=== PATIENT | male | born 1985 | race Caucasian/White ===

== ENCOUNTER 2017-06-13 20:11 | Emergency (ER) | payer SELFPAY ==
[2017-06-13 20:35] VITALS: BP 160/96
[2017-06-13] MEDS ORDERED: OXYCODONE-ACETAMINOPHEN 5-325 MG TABLET PO ONE (20:51)
--- NOTE | 2017-06-13 20:53 | ER Document Report ---
HPI - HPI Patient complains to provider of: Right lower leg pain Onset: Other - 3 weeks Onset/Duration: Persistent Quality of pain: Sharp Pain Level: 4 Context: Patient presents complaining of right leg pain for the past 3 weeks. Patient denies any injury, fever or urinary retention or incontinence. Patient states he did give himself an injection to the buttock around this time, and he has had pain ever since then. Patient states pain radiates up right lower back area as well. Associated Symptoms: Other - Right back, right lower leg. denies: Fever Exacerbated by: Movement Relieved by: Denies Similar symptoms previously: No Recently seen / treated by doctor: No - ROS ROS below otherwise negative: Yes Systems Reviewed and Negative: Yes All other systems reviewed and negative - CONSTITUTIONAL Constitutional: DENIES: Fever, Chills - NEURO Neurology: DENIES: Headache, Weakness - GASTROINTESTINAL Gastrointestinal: DENIES: Abdominal Pain, Nausea - URINARY Urinary: DENIES: Dysuria - MUSCULOSKELETAL Musculoskeletal: REPORTS: Extremity pain, Back Pain - DERM Skin Color: Normal Skin Problems: None Past Medical History - General Information source: Patient - Social History Smoking Status: Current Every Day Smoker Smoking Education Provided: Yes Frequency of alcohol use: None Drug Abuse: None Lives with: Spouse/Significant other Family History: Reviewed & Not Pertinent - Medical History Medical History: Other - Low testosterone Pulmonary Medical History: Reports: Hx Sleep Apnea Psychiatric Medical History: Reports: Hx Anxiety Surgical Hx: Negative Vertical Provider Document - CONSTITUTIONAL Agree With Documented VS: Yes Exam Limitations: No Limitations General Appearance: WD/WN, No Apparent Distress - INFECTION CONTROL TRAVEL OUTSIDE OF THE [place] IN LAST 30 DAYS: No - HEENT HEENT: Atraumatic, Normocephalic - NECK Neck: Normal Inspection - RESPIRATORY Respiratory: Breath Sounds Normal, No Respiratory Distress - CARDIOVASCULAR Cardiovascular: Regular Rate, Regular Rhythm Pulses: Normal: Dorsalis pedis - BACK Back: Abnormal Inspection - Right SI joint tenderness. negative: CVA Tenderness -Right, CVA Tenderness-Left Notes: No lumbar midline tenderness, step-off or deformity - MUSCULOSKELETAL/EXTREMETIES Musculoskeletal/Extremeties: MAEW, FROM - NEURO Level of Consciousness: Awake, Alert, Appropriate Motor/Sensory: No Motor Deficit, No Sensory Deficit Notes: No saddle anesthesia, no footdrop, normal gait - DERM Integumentary: Warm, Dry, No Rash Course - Re-evaluation Re-evalutation: 04/26/18 20:51 The patient presents with low back pain without signs of spinal cord compression , cauda equina syndrome, infection, aneurysm, or other serious etiology. The patient is neurologically intact. Given the extremely risk of these diagnoses further testing and evaluation for these possibilities does not appear to be indicated at this time. Patient has been instructed to return if the symptoms worsen or change in any way. Controlled substance database reviewed - Vital Signs Vital signs: Temp Pulse Resp BP Pulse Ox 98.6 F 89 19 160/96 H 98 06/13/17 20:35 06/13/17 20:35 06/13/17 20:35 06/13/17 20:35 06/13/17 20:35 Discharge - Discharge Clinical Impression: Sciatica Qualifiers: Laterality: right Qualified Code(s): M54.31 - Sciatica, right side Condition: Stable Disposition: HOME, SELF-CARE Instructions: Oral Narcotic Medication ([facility]), Sciatica ([facility]) Additional Instructions: Return immediately for any new or worsening symptoms Followup with your primary care provider, call tomorrow to make a followup appointment Prescriptions: Oxycodone HCl/Acetaminophen [Percocet 5-325 mg Tablet] 1 - 2 tab PO ASDIR PRN # 15 tablet PRN Reason: Prednisone [Deltasone 20 mg Tablet] 3 tab PO DAILY 5 Days tablet Forms: Smoking Cessation Education Referrals: [facility] [Provider Group] - Follow up as needed [facility] [Provider Group] - Follow up as needed
== END 2017-06-13 21:12 | disposition home or self-care (01) ==
LOC: ER 20:11
DX: M54.31 Sciatica, right side (principal); M79.604 Pain in right leg; M54.9 Dorsalgia, unspecified; F17.200 Nicotine dependence, unspecified, uncomplicated
CPT/HCPCS: 99283

== ENCOUNTER 2017-12-24 10:28 | Emergency (ER) | payer BC ==
[2017-12-24] MEDS ORDERED: PROCHLORPERAZINE EDISYLATE INJ 10 MG/2 ML VIAL IV ONE (12:01)
[2017-12-24] MEDS ORDERED: NORMAL SALINE 1000 ML 1,000 ML IV ONE (12:01)
[2017-12-24] MEDS ORDERED: DIPHENHYDRAMINE HCL 50 MG/ML VIAL IV ONE (12:01)
[2017-12-24] MEDS ORDERED: MECLIZINE HCL 25 MG TABLET PO ONE (12:03)
--- NOTE | 2017-12-24 12:03 | ER Document Report ---
ED Medical Screen (RME) - General Chief Complaint: Headache Stated Complaint: NEAR SYNCOPE Time Seen by Provider: 12/24/17 11:53 Mode of Arrival: Wheelchair Information source: Patient Notes: 32-year-old male presents emergency department with complaints of a headache, nausea, vomiting. Patient states that 11 AM this morning he began having a pounding sensation but behind his eyes bilaterally. He states that the pain radiated to the top of the head. He states that when he moves his head and light worsens the headache. He states that being in a dark room and keeping his head still helps with the headache. He did not take any medication prior to arrival. Patient states that this headache is more intense than his previous headaches. He states that currently he is feeling like he is on a boat. He states that the room is moving. Patient states that earlier he felt lightheaded like he was going to pass out. He denies any chest pain or shortness of breath. I have greeted and performed a rapid initial assessment of this patient. A comprehensive ED assessment and evaluation of the patient, analysis of test results and completion of the medical decision making process will be conducted by additional ED providers. PHYSICAL EXAMINATION: GENERAL: Well-appearing, well-nourished and in no acute distress. HEAD: Atraumatic, normocephalic. EYES: Pupils equal round extraocular movements intact, conjunctiva are normal. ENT: Nares patent NECK: Normal range of motion LUNGS: No respiratory distress Musculoskeletal: Normal range of motion NEUROLOGICAL: Normal speech. PSYCH: Normal mood, normal affect. SKIN: Warm, Dry, normal turgor, no rashes or lesions noted. TRAVEL OUTSIDE OF THE [place] IN LAST 30 DAYS: No - Related Data Allergies/Adverse Reactions: bupropion [From Wellbutrin] Allergy (Verified 12/24/17 10:33) Penicillins Allergy (Verified 12/24/17 10:33) Past Medical History - Social History Chew tobacco use (# tins/day): No Frequency of alcohol use: Occasional Drug Abuse: None Pulmonary Medical History: Reports: Hx Sleep Apnea Neurological Medical History: Reports: Hx Migraine Renal/ Medical History: Denies: Hx Peritoneal Dialysis Psychiatric Medical History: Reports: Hx Anxiety, Hx Attention Deficit Hyperactivity Disorder Past Surgical History: Reports: Hx Tonsillectomy Physical Exam - Vital signs Vitals: Temp Pulse Resp BP Pulse Ox 98.5 F 78 16 154/87 H 98 12/24/17 10:57 12/24/17 10:57 12/24/17 10:57 12/24/17 10:57 12/24/17 10:57 Course - Vital Signs Vital signs: Temp Pulse Resp BP Pulse Ox 98.5 F 78 16 154/87 H 98 12/24/17 10:57 12/24/17 10:57 12/24/17 10:57 12/24/17 10:57 12/24/17 10:57
--- NOTE | 2017-12-24 13:21 | EKG REPORT ---
SEVERITY:- ABNORMAL ECG - SINUS RHYTHM NONSPECIFIC INTRAVENTRICULAR CONDUCTION DELAY EARLY PRECORDIAL TRANSITION. : Confirmed by: Gerson Ramos MD 24-Dec-2017 13:20:26
--- NOTE | 2017-12-24 15:08 | ER Document Report ---
ED General - General Chief Complaint: Headache Stated Complaint: NEAR SYNCOPE Time Seen by Provider: 12/24/17 11:53 Mode of Arrival: Wheelchair TRAVEL OUTSIDE OF THE [place] IN LAST 30 DAYS: No - HPI Patient complains to provider of: Headache dizziness Notes: patient coming in for the above-stated symptoms. Patient was seen in the triage area provider note is provided below 32-year-old male presents emergency department with complaints of a headache, nausea, vomiting. Patient states that 11 AM this morning he began having a pounding sensation but behind his eyes bilaterally. He states that the pain radiated to the top of the head. He states that when he moves his head and light worsens the headache. He states that being in a dark room and keeping his head still helps with the headache. He did not take any medication prior to arrival. Patient states that this headache is more intense than his previous headaches. He states that currently he is feeling like he is on a boat. He states that the room is moving. Patient states that earlier he felt lightheaded like he was going to pass out. He denies any chest pain or shortness of breath. Patient agrees with above-stated symptoms and statements. Patient denies any fever chills diarrhea. Patient resting company upon my evaluation stating that most of his pain at this time is resolved and otherwise he is feeling asymptomatic. Patient denies following up with neurology denies any change in characteristic of that of his headache otherwise stating that this is a little bit more painful. Denies any trauma - Related Data Allergies/Adverse Reactions: bupropion [From Wellbutrin] Allergy (Verified 12/24/17 10:33) Penicillins Allergy (Verified 12/24/17 10:33) Past Medical History - General Information source: Patient - Social History Smoking Status: Current Every Day Smoker Chew tobacco use (# tins/day): No Frequency of alcohol use: Occasional Drug Abuse: None Family History: Reviewed & Not Pertinent Patient has suicidal ideation: No Patient has homicidal ideation: No Pulmonary Medical History: Reports: Hx Sleep Apnea Neurological Medical History: Reports: Hx Migraine Renal/ Medical History: Denies: Hx Peritoneal Dialysis Psychiatric Medical History: Reports: Hx Anxiety, Hx Attention Deficit Hyperactivity Disorder Past Surgical History: Reports: Hx Tonsillectomy Review of Systems - Review of Systems Constitutional: No symptoms reported EENT: No symptoms reported Cardiovascular: No symptoms reported Respiratory: No symptoms reported Gastrointestinal: No symptoms reported Genitourinary: No symptoms reported Male Genitourinary: No symptoms reported Musculoskeletal: No symptoms reported Skin: No symptoms reported Hematologic/Lymphatic: No symptoms reported Neurological/Psychological: Headaches, Other - Dizziness -: Yes All other systems reviewed and negative Physical Exam - Vital signs Vitals: Temp Pulse Resp BP Pulse Ox 98.5 F 78 16 154/87 H 98 12/24/17 10:57 12/24/17 10:57 12/24/17 10:57 12/24/17 10:57 12/24/17 10:57 Interpretation: Normal - General General appearance: Appears well, Alert - HEENT Head: Normocephalic, Atraumatic Eyes: Normal Pupils: PERRL - Respiratory Respiratory status: No respiratory distress Chest status: Nontender Breath sounds: Normal Chest palpation: Normal - Cardiovascular Rhythm: Regular Heart sounds: Normal auscultation Murmur: No - Abdominal Inspection: Normal Distension: No distension Bowel sounds: Normal Tenderness: Nontender Organomegaly: No organomegaly - Back Back: Normal, Nontender - Extremities General upper extremity: Normal inspection, Nontender, Normal color, Normal ROM , Normal temperature General lower extremity: Normal inspection, Nontender, Normal color, Normal ROM , Normal temperature, Normal weight bearing. No: Valeriy's sign - Neurological Neuro grossly intact: Yes Cognition: Normal Orientation: AAOx4 [place] Coma Scale Eye Opening: Spontaneous [place] Coma Scale Verbal: Oriented [place] Coma Scale Motor: Obeys Commands Viktoria Coma Scale Total: 15 Speech: Normal Motor strength normal: LUE, RUE, LLE, RLE Sensory: Normal - Psychological Associated symptoms: Normal affect, Normal mood - Skin Skin Temperature: Warm Skin Moisture: Dry Skin Color: Normal Course - Re-evaluation Re-evalutation: 12/24/17 22:50 The patient presents with headache without signs of PR[employer]ER bleed, stroke, infection , or other serious etiology. The patient is neurologically intact. Given the extremely low risk of these diagnoses further testing and evaluation for these possibilities does not appear to be indicated at this time. The patient has been instructed to return if the symptoms worsen or change in any way.. - Vital Signs Vital signs: Temp Pulse Resp BP Pulse Ox 97.4 F 60 16 127/64 H 97 12/24/17 15:26 12/24/17 15:26 12/24/17 15:26 12/24/17 15:26 12/24/17 15:26 Discharge - Discharge Clinical Impression: Dizziness Headache Qualifiers: Headache type: unspecified Headache chronicity pattern: unspecified pattern Intractability: not intractable Qualified Code(s): R51 - Headache Condition: Good Disposition: HOME, SELF-CARE Instructions: Dizziness ([facility]), Headache ([facility]) Additional Instructions: Your evaluation today does not reveal any significant pathology for your headache. I would recommend taking the Zofran Compazine together for headache control he may take 1 of the medications either Zofran or Compazine for nausea control. Please make sure you drink plenty of fluids stay well-hydrated follow- up with your primary care physician for further evaluation. Prescriptions: Ondansetron HCl [Zofran 4 mg Tablet] 1 - 2 tab PO Q6 #30 tablet Prochlorperazine Maleate [Compazine] 5 mg PO Q6 #30 tablet Forms: Return to Work
[2017-12-24 15:28] VITALS: BP 127/64
== END 2017-12-24 15:32 | disposition home or self-care (01) ==
LOC: ER 10:28
DX: R51 Headache (principal); R42 Dizziness and giddiness; R11.2 Nausea with vomiting, unspecified; F17.200 Nicotine dependence, unspecified, uncomplicated
CPT/HCPCS: 93005; 99284; 96361; 96374; 96375; 93010; J1200; J0780; J7030